=== PATIENT | female | born 1985 | race Caucasian/White ===

== ENCOUNTER 2019-05-11 11:39 | Emergency (ER) | payer SELFPAY ==
[~2019-05-11] VITALS: Ht 172.7 cm; Wt 54.4 kg
--- NOTE | 2019-05-11 12:14 | ED General ---
General Chief Complaint: General Problems/Pain Stated Complaint: NII HIP/LEG; RT SHOULDER/HAND PAIN Nursing Triage Note: Patient complaining of R shoulder, lower back, bilateral hip, bilateral knee and leg pain. Also states her right hand is swollen. She stated she woke up this way but mother who is present in room states it started two days ago after patient had been hauling wood. Has hx of sciatica but states this is not the same pain. Was seen in ED at [place] yesterday and was told she was dehydrated and given fluids and a muscle relaxer. States she has been taking ibuprofen but is not helping with pain. Pain currently rated at 9/10. Patient is requesting staff move her legs for her due to the pain but was able to stand and transfer onto ED bed. Nursing Sepsis Screen: No Definite Risk Source of Information: Patient, Family, Old Records, RN Notes Reviewed Exam Limitations: No Limitations History of Present Illness Date Seen by Provider: May 11, 2019 Time Seen by Provider: 12:13 Initial Comments Patient presents c/ c/o worsening basically muscle pain all over. Mother reports this started 2 days ago and patient was actually seen for it yesterday @ [facility] and told she was dehydrated. Apparently there is a history of injecting meth a couple days ago. No known fever. Denies GI, or symptoms. (+) right hand swelling. Does admit to being bit by ticks recently. Timing/Duration: 2-3 Days Severity: Severe Modifying Factors: worse with Movement; improves with Rest Associated Systoms: Denies Symptoms (x/ as noted. ), Headaches Allergies and Home Medications Allergies Coded Allergies: No Known Drug Allergies (Unverified , 05/11/19) Home Medications Cefdinir 300 Mg Capsule, 300 MG PO BID Prescribed by: CLIVE ROB on 05/11/19 1502 Prednisone 20 Mg Tab, 30 MG PO BID Take 3 tabs(60mg)daily, decrease by 1/2 tab(10mg)daily. Prescribed by: CLIVE ROB on 05/11/19 1503 Patient Home Medication List Home Medication List Reviewed: Yes Review of Systems Review of Systems Constitutional: see HPI : No Musculoskeletal: see HPI, joint swelling, muscle pain Psychiatric/Neurological: See HPI, Headache All Other Systems Reviewed Negative Unless Noted: Yes (Negative excepted noted.) Past Qxlormw-Ujsnfg-Ebwsrr Hx Patient Social History Alcohol Use: Denies Use Recreational Drug Use: No Smoking Status: Current Everyday Smoker Type Used: Cigarettes 2nd Hand Smoke Exposure: Yes Recent Foreign Travel: No Contact w/Someone Who Travel: No Recent Infectious Disease Expo: No Recent Hopitalizations: No Physical Abuse: No Sexual Abuse: No Mistreated: No Fear: No Seasonal Allergies Seasonal Allergies: No Past Medical History Surgeries: No Respiratory: No Cardiac: No Neurological: Yes Headaches /Migraines Genitourinary: No Gastrointestinal: No Musculoskeletal: Yes (sciatica) Endocrine: No HEENT: No Cancer: No Psychosocial: No Integumentary: No Blood Disorders: No Adverse Reaction/Blood Tranf: No Physical Exam Vital Signs Vital Signs - First Documented 05/11/19 11:45 Temp 100.4 Pulse 108 Resp 22 B/P (MAP) 120/67 (84) Pulse Ox 99 Capillary Refill : Less Than 3 Seconds Height, Weight, BMI Height: 5'8.00" Weight: 120lbs. oz. [id number]; BMI Method:Stated General Appearance: WD/WN, Mild Distress HEENT: No Moist Mucous Membranes Neck: Supple Respiratory: No Respiratory Distress Cardiovascular: Tachycardia Rectal: Deferred Neurologic/Psychiatric: Alert, No Motor/Sensory Deficits Skin: Warm/Dry Focused Exam Lactate Level 05/11/19 12:30: Lactic Acid Level 0.92 Lactic Acid Level Laboratory Tests Test 05/11/19 12:30 Lactic Acid Level 0.92 MMOL/L (0.50-2.00) Progress/Results/Core Measures Suspected Sepsis Recent Fever Within 48 Hours: Yes Infection Criteria Present: None New/Unexplained Altered Menta: No Sepsis Screen: No Definite Risk SIRS Temperature:100.4 Pulse: 108 Respiratory Rate: 22 Laboratory Tests 05/11/19 12:30: White Blood Count 18.5H Blood Pressure 120 /67 Mean: 84 05/11/19 12:30: Lactic Acid Level 0.92 Laboratory Tests 05/11/19 12:30: Creatinine 0.61, Platelet Count 148, Total Bilirubin 0.9 Results/Orders Lab Results Laboratory Tests Test 05/11/19 12:19 05/11/19 12:30 05/11/19 14:22 Range/Units Group A Streptococcus Screen NEGATIVE NEGATIVE White Blood Count 18.5 H 4.3-11.0 10^3/uL Red Blood Count 4.37 4.35-5.85 10^6/uL Hemoglobin 13.1 11.5-16.0 G/DL Hematocrit 39 35-52 % Mean Corpuscular Volume 90 80-99 FL Mean Corpuscular Hemoglobin 30 25-34 PG Mean Corpuscular Hemoglobin Concent 33 32-36 G/DL Red Cell Distribution Width 12.0 10.0-14.5 % Platelet Count 148 130-400 10^3/uL Mean Platelet Volume 11.2 H 7.4-10.4 FL Neutrophils (%) (Auto) 81 H 42-75 % Lymphocytes (%) (Auto) 10 L 12-44 % Monocytes (%) (Auto) 8 0-12 % Eosinophils (%) (Auto) 0 0-10 % Basophils (%) (Auto) 0 0-10 % Neutrophils # (Auto) 14.9 H 1.8-7.8 X 10^3 Lymphocytes # (Auto) 1.9 1.0-4.0 X 10^3 Monocytes # (Auto) 1.4 H 0.0-1.0 X 10^3 Eosinophils # (Auto) 0.0 0.0-0.3 10^3/uL Basophils # (Auto) 0.0 0.0-0.1 10^3/uL Neutrophils % (Manual) 76 % Lymphocytes % (Manual) 7 % Monocytes % (Manual) 11 % Eosinophils % (Manual) 0 % Basophils % (Manual) 0 % Band Neutrophils 6 % Erythrocyte Sedimentation Rate 47 H 0-20 MM/HR Sodium Level 135 135-145 MMOL/L Potassium Level 3.6 3.6-5.0 MMOL/L Chloride Level 96 L 98-107 MMOL/L Carbon Dioxide Level 26 21-32 MMOL/L Anion Gap 13 5-14 MMOL/L Blood Urea Nitrogen 6 L 7-18 MG/DL Creatinine 0.61 0.60-1.30 MG/DL Estimat Glomerular Filtration Rate > 60 BUN/Creatinine Ratio 10 Glucose Level 110 H 70-105 MG/DL Lactic Acid Level 0.92 0.50-2.00 MMOL/L Calcium Level 9.0 8.5-10.1 MG/DL Corrected Calcium 9.1 8.5-10.1 MG/DL Magnesium Level 1.7 L 1.8-2.4 MG/DL Total Bilirubin 0.9 0.1-1.0 MG/DL Aspartate Amino Transf (AST/SGOT) 23 5-34 U/L Alanine Aminotransferase (ALT/SGPT) 40 0-55 U/L Alkaline Phosphatase 71 40-136 U/L Myoglobin 21.0 10.0-92.0 NG/ML Total Protein 7.6 6.4-8.2 GM/DL Albumin 3.9 3.2-4.5 GM/DL Serum Test, Qualitative NEGATIVE NEGATIVE Urine Opiates Screen POSITIVE H NEGATIVE Urine Oxycodone Screen POSITIVE H NEGATIVE Urine Methadone Screen NEGATIVE NEGATIVE Urine Propoxyphene Screen NEGATIVE NEGATIVE Urine Barbiturates Screen NEGATIVE NEGATIVE Ur Tricyclic Antidepressants Screen NEGATIVE NEGATIVE Urine Phencyclidine Screen NEGATIVE NEGATIVE Urine Amphetamines Screen POSITIVE H NEGATIVE Urine Methamphetamines Screen POSITIVE H NEGATIVE Urine Benzodiazepines Screen POSITIVE H NEGATIVE Urine Cocaine Screen NEGATIVE NEGATIVE Urine Cannabinoids Screen POSITIVE H NEGATIVE Urine Color YELLOW Urine Clarity SLT CLOUDY Urine pH 8.0 5-9 Urine Specific [place] 1.010 L 1.016-1.022 Urine Protein NEGATIVE NEGATIVE Urine Glucose (UA) NEGATIVE NEGATIVE Urine Ketones NEGATIVE NEGATIVE Urine Nitrite POSITIVE H NEGATIVE Urine Bilirubin NEGATIVE NEGATIVE Urine Urobilinogen 0.2 NORMAL MG/DL Urine Leukocyte Esterase TRACE H NEGATIVE Urine RBC (Auto) NEGATIVE NEGATIVE Urine RBC NONE /HPF Urine WBC 5-10 H /HPF Urine Squamous Epithelial Cells 10-25 H /HPF Urine Crystals NONE /LPF Urine Bacteria LARGE H /HPF Urine Casts NONE /LPF Urine Mucus NONE /LPF Urine Culture Indicated YES My Orders Orders - CLIVE ROB DO Ed Iv/Invasive Line Start (05/11/19 12:09) Cbc With Automated Diff (05/11/19 12:09) Comprehensive Metabolic Panel (05/11/19 12:09) Creatine Kinase (05/11/19 12:09) Drug Screen Stat (Urine) (05/11/19 12:09) Hcg,Qualitative Serum (05/11/19 12:09) Lactic Acid Analyzer (05/11/19 12:09) Magnesium (05/11/19 12:09) Ua Culture If Indicated (05/11/19 12:09) Erythrocyte Sedimentation Rate (05/11/19 12:09) Myoglobin Serum (05/11/19 12:09) Uric Acid (05/11/19 12:09) Hs C Reactive Protein (05/11/19 12:09) Blood Culture (05/11/19 12:13) Rapid Strep A Screen (05/11/19 12:14) Lactated Ringers (Lr 1000 Ml Iv Solution (05/11/19 12:30) Ketorolac Injection (Toradol Injection) (05/11/19 12:45) Manual Differential (05/11/19 12:30) Cyclobenzaprine Tablet (Flexeril Tablet) (05/11/19 12:52) Blood Culture (05/11/19 13:17) Ns Iv 1000 Ml (Sodium Chloride 0.9%) (05/11/19 14:15) Chest 1 View Ap/Pa Only (05/11/19 14:06) Tick Panel With Lyme Eia (05/11/19 14:11) Dexamethasone Injection (Decadron Inject (05/11/19 14:30) Acetaminophen Tablet (Tylenol Tablet) (05/11/19 14:45) Urine Culture (05/11/19 14:22) Ceftriaxone For Iv Use (Rocephin For I (05/11/19 15:15) Prednisone Tablet (Deltasone Tablet) (05/11/19 15:15) Medications Given in ED Current Medications Medications Dose Ordered Sig/Janina Route Start Time Stop Time Status Last Admin Dose Admin Acetaminophen 1,000 mg ONCE ONCE PO 05/11/19 14:45 05/11/19 14:46 DC 05/11/19 14:56 1,000 MG Dexamethasone Sodium Phosphate 15 mg ONCE ONCE IV 05/11/19 14:30 05/11/19 14:31 DC 05/11/19 14:35 15 MG Ketorolac Tromethamine 15 mg ONCE ONCE IVP 05/11/19 12:45 05/11/19 12:46 DC 05/11/19 12:52 15 MG Vital Signs/I&O 05/11/19 11:45 Temp 100.4 Pulse 108 Resp 22 B/P (MAP) 120/67 (84) Pulse Ox 99 Capillary Refill : Less Than 3 Seconds Blood Pressure Mean: 84 Progress Note : Progress Note Symptoms have improved c/ meds and IVF's. UDS almost (+) for everything. Diagnostic Imaging Diagonstic Imaging: Xray Plain Films/CT/US/NM/MRI: chest (nothing acute) Departure Impression Primary Impression: Myositis Additional Impressions: UTI (urinary tract infection) Neutrophilic leukocytosis Polysubstance abuse Disposition: 01 HOME, SELF-CARE Condition: Improved Departure-Patient Inst. Referrals: NO,LOCAL PHYSICIAN (PCP/Family) Primary Care Physician Patient Instructions: Urinary Tract Infection, Adult (DC), Polymyositis Scripts Prednisone (Prednisone) 20 Mg Tab 30 MG PO BID for 7 Days, #21 TAB 0 Refills Take 3 tabs(60mg)daily, decrease by 1/2 tab(10mg)daily. Prov: CLIVE ROB DO 05/11/19 Cefdinir (Cefdinir) 300 Mg Capsule 300 MG PO BID for 10 Days, #20 CAP 0 Refills Prov: CLIVE ROB DO 05/11/19 CLIVE ROB DO May 11, 2019 12:14
[2019-05-11] MEDS ORDERED: LACTATED RINGERS 1,000 ML IV SCH (12:30)
[2019-05-11 12:45] LABS: HEMATOCRIT 39 % (35-52); HEMOGLOBIN 13.1 G/DL (11.5-16.0); MEAN CORPUSCULAR HEMOGLOBIN 30 PG (25-34); MEAN CORPUSCULAR HGB CONC 33 G/DL (32-36); MEAN CORPUSCULAR VOLUME 90 FL (80-99); MEAN PLATELET VOLUME 11.2 FL (7.4-10.4); PLATELET COUNT 148 10^3/uL (130-400); WHITE BLOOD COUNT 18.5 10^3/uL (4.3-11.0)
[2019-05-11] MEDS ORDERED: KETOROLAC 30 MG/ML VIAL IVP ONE (12:45)
[2019-05-11 12:46] LABS: BASOPHILS % (AUTO) 0 % (0-10); EOSINOPHILS % (AUTO) 0 % (0-10); LYMPHOCYTES # (AUTO) 1.9 X 10^3 (1.0-4.0); LYMPHOCYTES % (AUTO) 10 % (12-44); MONOCYTES # (AUTO) 1.4 X 10^3 (0.0-1.0); MONOCYTES % (AUTO) 8 % (0-12); NEUTROPHILS # (AUTO) 14.9 X 10^3 (1.8-7.8); NEUTROPHILS % (AUTO) 81 % (42-75)
[2019-05-11] MEDS ORDERED: CYCLOBENZAPRINE 10 MG (FLEXERIL) TAB PO STA (12:52)
[2019-05-11 13:08] LABS: BAND NEUTROPHILS 6 %; BASOPHILS % (MANUAL) 0 %; EOSINOPHILS % (MANUAL) 0 %; LYMPHOCYTES % (MANUAL) 7 %; MONOCYTES % (MANUAL) 11 %; NEUTROPHILS % (MANUAL) 76 %
[2019-05-11 13:09] LABS: CARBON DIOXIDE 26 MMOL/L (21-32); CHLORIDE 96 MMOL/L (98-107); POTASSIUM 3.6 MMOL/L (3.6-5.0); SODIUM 135 MMOL/L (135-145)
[2019-05-11 13:10] LABS: ALANINE AMINOTRANSFERASE 40 U/L (0-55); ALKALINE PHOSPHATASE 71 U/L (40-136); BILIRUBIN,TOTAL 0.9 MG/DL (0.1-1.0); BUN/CREATININE RATIO 10; CREATININE SERUM 0.61 MG/DL (0.60-1.30); GFR ESTIMATED > 60; GLUCOSE 110 MG/DL (70-105); MAGNESIUM 1.7 MG/DL (1.8-2.4); TOTAL PROTEIN 7.6 GM/DL (6.4-8.2)
[2019-05-11 13:11] LABS: ALBUMIN 3.9 GM/DL (3.2-4.5)
[2019-05-11 13:20] LABS: ERYTHROCYTE SEDIMENTATION RATE 47 MM/HR (0-20)
[2019-05-11] MEDS ORDERED: NS IV 1000 ML 1,000 ML IV SCH (14:15)
[2019-05-11] MEDS ORDERED: DEXAMETHASONE 10 MG/ML (DECADRON) 1 ML VIAL IV ONE (14:30)
[2019-05-11] MEDS ORDERED: ACETAMINOPHEN 500 MG TAB (TYLENOL) PO ONE (14:45)
--- NOTE | 2019-05-11 14:49 | Diagnostic Imaging Report ---
Indication: Diffuse pain. The lungs are clear given the overlying breast attenuation artifact. Hilar mediastinal contours are normal. No failure, effusion or pneumothorax. No free air beneath the diaphragms. Impression: No acute-appearing abnormality. Dictated by: Dictated on workstation # [id number]
[2019-05-11 14:53] LABS: CLARITY,URINE SLT CLOUDY; COLOR,URINE YELLOW
[2019-05-11 14:54] LABS: BACTERIA,URINE LARGE /HPF; BILIRUBIN,URINE NEGATIVE (NEGATIVE); GLUCOSE, URINE (UA) NEGATIVE (NEGATIVE); KETONES,URINE NEGATIVE (NEGATIVE); LEUKOCYTE ESTERASE ,URINE TRACE (NEGATIVE); NITRITE,URINE POSITIVE (NEGATIVE); PROTEIN,URINE NEGATIVE (NEGATIVE); UROBILINOGEN,URINE 0.2 MG/DL (NORMAL)
[2019-05-11 14:57] LABS: AMPHETAMINE SCREEN, URINE POSITIVE (NEGATIVE); BENZODIAZEPINES SCREEN URINE POSITIVE (NEGATIVE); CANNABINOID SCREEN, URINE POSITIVE (NEGATIVE); COCAINE SCREEN URINE NEGATIVE (NEGATIVE); METHAMPHETAMINE SCREEN URINE S POSITIVE (NEGATIVE)
[2019-05-11 14:58] LABS: BARBITURATE SCREEN URINE NEGATIVE (NEGATIVE); METHADONE STAT NEGATIVE (NEGATIVE); OPIATE SCREEN URINE POSITIVE (NEGATIVE); OXYCODONE STAT POSITIVE (NEGATIVE); PROPOXYPHENE STAT NEGATIVE (NEGATIVE); TRICYCLIC ANTIDEPRESSANTS SCRE NEGATIVE (NEGATIVE)
[2019-05-11] MEDS ORDERED: PRD20T PO (15:09)
[2019-05-11] MEDS ORDERED: CEFD300C3 PO (15:09)
[2019-05-11] MEDS ORDERED: predniSONE 20 MG TAB PO ONE (15:15)
[2019-05-11] MEDS ORDERED: cefTRIAXone FOR IV USE 1,000 MG in WATER (STERILE) FOR INJECTION 10 ML IV ONE (15:15)
[2019-05-11 15:22] LABS: CREATINE KINASE 38 U/L (29-168); URIC ACID 2.8 MG/DL (2.6-7.2)
[2019-05-11 15:49] VITALS: BP 123/67
== END 2019-05-11 15:57 | disposition home or self-care (01) ==
LOC: EDUNIT# 11:39 → ER FS 11:42
DX: M60.9 Myositis, unspecified (principal); N39.0 Urinary tract infection, site not specified; D72.829 Elevated white blood cell count, unspecified; F15.10 Other stimulant abuse, uncomplicated; G43.909 Migraine, unspecified, not intractable, without status migrainosus; F17.210 Nicotine dependence, cigarettes, uncomplicated
CPT/HCPCS: 36415; 71045; 80053; 80306; 81000; 82550; 83605; 83735; 83874; 84550; 84703; 85007; 85027; 85652; 86141; 86618; 86666; 86668; 86757; 87040; 87077; 87088; 87186; 87430